=== PATIENT | female | born 1960 | race Caucasian/White ===

== ENCOUNTER 2023-12-28 01:18 | Day surgery (SDC) | payer OTHER, SELFPAY ==
[2023-12-08 11:29] VITALS: BMI 28.3
[2023-12-28 09:15] VITALS: BP 151/90; PULSE 70; RESP 20; TEMP 35.8; O2SAT 100; BMI 27.3
[2023-12-28] MEDS: LACTATED RINGERS 1,000 ML 150 ML IV CONT (09:25)
--- NOTE | 2023-12-28 09:50 | P.PNAN_ITS ---
Anes - Initial Pre Proc Eval Procedure: Operation Date: 12/28/23 10:30 Proposed Procedures p Screening Colonoscopy - Viral Fonseca MD Date/Time: 12/28/23 09:50 Surgeon: Viral Fonseca MD Pre Op Diagnosis: Neoplasm screening Patient Data Age: 63 Gender: F Height: 1.65 m Weight: 74.6 kg Last Vital Signs Temp 96.5 F L 12/28/23 09:15 Pulse 70 12/28/23 09:15 Resp 20 12/28/23 09:15 BP 151/90 H 12/28/23 09:15 Pulse Ox 100 12/28/23 09:15 O2 Del Method Room Air 12/28/23 09:15 Allergies Allergy/AdvReac Type Severity Reaction Status Date / Time No Known Allergies Allergy Unknown Verified 12/28/23 09:13 Home Medications Medication Instructions Recorded Confirmed Type No Home Medications 12/08/23 12/28/23 History Patient hx anesthesia problems: none Family hx anesthesia problems: none Results Review: All pre-operative results and documents have been reviewed as part of the pre-o perative evaluation. [facility], [facility] Family History Family History (System 09/18/19 @ 13:25 by Zenaida Barton) Mother Diabetes mellitus Family history of malignant neoplasm of breast in first degree relative Sibling Diabetes mellitus Grandparent Family history of malignant neoplasm of breast in first degree relative Social History Social History (System 09/18/19 @ 13:25 by Zenaida Barton) Smoking status: Never smoker Substance use type: does not use Living arrangements: with family Spiritual care concerns: No Anes - Eval Final PreProcedure Day of Procedure 12/28/23 09:50 Patient weight: overweight Heart: regular rate and rhythm Lungs: clear to auscultation Airway: Mallampati scale class II Neurological: alert and oriented Last oral intake: >/= 8 hours ASA classification: II Emergent: no Anesthetic plan: proceed Anesthesia type and monitoring: general GIVS and standard monitoring Results Review: All pre-operative results and documents have been reviewed as part of the pre- operative evaluation. Informed Consent: The patient's anesthetic plan and its attendant risks and benefits were discussed with the patient/family/POA. Questions were solicited and answers provided to the satisfaction of the patient/family/POA.
--- NOTE | 2023-12-28 10:12 | PM.HPGS ---
History of Present Illness History of Present Illness Consent: Risks, benefits, and alternatives have been discussed and questions answered. Patient agrees to proceed with procedure. Chief complaint: Neoplasm screening Narrative: Grecia Barfield is a 63 year old female here for first screening colonoscopy Review of Systems Review of Systems: All systems reviewed & are unremarkable except as noted in HPI and below PMFSH Past Medical History Medical History (Updated 12/28/23 @ 10:13 by Viral Fonseca MD) Colon cancer screening Family History Family History (System 09/18/19 @ 13:25 by Zenaida Barton) Mother Diabetes mellitus Family history of malignant neoplasm of breast in first degree relative Sibling Diabetes mellitus Grandparent Family history of malignant neoplasm of breast in first degree relative Social History Social History (System 09/18/19 @ 13:25 by Zenaida Barton) Smoking status: Never smoker Substance use type: does not use Living arrangements: with family Spiritual care concerns: No Meds Home Medications and Allergies Home Medications Medication Instructions Recorded Confirmed Type No Home Medications 12/08/23 12/28/23 History Allergies Allergy/AdvReac Type Severity Reaction Status Date / Time No Known Allergies Allergy Unknown Verified 12/28/23 09:13 Vital Signs Vital Signs - 24 hr 12/28/23 09:15 Temperature 96.5 F L Pulse Rate 70 Respiratory Rate 20 Blood Pressure 151/90 H Pulse Oximetry 100 Oxygen Delivery Room Air Exam Const: General: comfortable and no acute distress HENMT: Face/Nose/Sinus: Normal nares present Eyes: General: appearance normal, both eyes and all related structures Neck: Neck: no JVD Resp: Auscultation: clear to auscultation bilaterally Cardio: Rate: regular rate Rhythm: regular rhythm GI: Inspection: non-distended GI Palp: Yes Soft to palpation Skin: General skin exam: normal color Neuro: General: gait normal Speech: normal speech Extrem: General: normal to inspection Psych: Mental Status: mental status grossly normal Assessment and Plan Assessment and plan (1) Colon cancer screening: Code(s): Z12.11 - Encounter for screening for malignant neoplasm of colon Status: Acute Assessment and Plan: colonoscopy
[2023-12-28 10:30] VITALS: BP 105/65; PULSE 70; RESP 14; O2SAT 97
[2023-12-28 10:40] VITALS: BP 122/68; PULSE 70; RESP 15; O2SAT 98
[2023-12-28 10:50] VITALS: BP 126/76; PULSE 62; RESP 14; O2SAT 100
== END 2023-12-28 11:02 | disposition home or self-care (01) ==
PROVIDERS: Visit Provider Internal Medicine Gastroenterology
PROC: 0DJD8ZZ Inspection of Lower Intestinal Tract, Via Natural or Artificial Opening Endoscopic (ICD-10-PCS; CPT 45378; principal; 2023-12-28 10:30)
DX: Z12.11 Encounter for screening for malignant neoplasm of colon (principal); K64.8 Other hemorrhoids; Z80.3 Family history of malignant neoplasm of breast
CPT/HCPCS: 45378; J2704; J7120